=== PATIENT | female | born 1955 | race Caucasian/White ===

== ENCOUNTER 2016-11-11 10:18 | Inpatient (IN) | payer OTHER, MEDICAID ==
[2016-11-11] VITALS (9 sets, daily range): BP systolic 144–211; BP diastolic 60–100; Ht 157.5 cm; Wt 81.6 kg
[~2016-11-11] VITALS: Ht 157.5 cm; Wt 81.6 kg
[~2016-11-11 10:18] MED LIST: AMBIEN10 MG PO; ATENOLOL50 MG PO; CLONIDINE HCL0.1 MG PO; COLACE100 MG PO; LAC PO; LEVAQUIN750 MG PO; LORAZEPAM1 MG PO; MEDDP PO; NICOTINE T14 MG/24 H TOP; NOR10T PO; PRILOSEC20 MG PO
--- NOTE | 2016-11-11 10:47 | NUR ---
PT IS A 61 YEAR OLD FEMALE, PRESENTS TO ED VIA [facility] FROM HOME, PTS DAUGHTER CALLED 911 DUE TO ALOC, PT WAS X/[address]. PT WAS HOT TO TOUCH AT HOME. PT HAS HAVE N/V/D X3 DAYS. UPON ASSESSMENT IN ROOM, PT A/O X4. PT REPORTS FEELING EXTREMTLY THIRTSY. PT IS HOT TO TOUCH. PT DENIES ANY PAIN AT THIS TIME. PT BREAHTING IS EVEN AND UNLABOERED, NO S/S OF RESPRAITORY DISTRSES. SPEECH IS CLEAR AND APPROPRIATE. PT A/O X4. 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 MSE PERFORMED BY DR. ADAMS.
--- NOTE | 2016-11-11 11:02 | NUR ---
PT MEDICATED WITH TYLENOL 1GM PO FOR FEVER OF 104.
--- NOTE | 2016-11-11 11:05 | NUR ---
PT TAKEN TO CT VIA [facility].
--- NOTE | 2016-11-11 11:16 | NUR ---
BACK FROM CT VIA [facility].
[2016-11-11 11:44] LABS: BASOPHIL % 0.1 % (0-2); PLATELET COUNT 173 x10^3mcL (130-400); RED CELL DISTRIBUTION WIDTH 14.3 % (11.5-14.5)
[2016-11-11 11:55] LABS: CALCIUM 8.2 mg/dL (8.5-10.1); CARBON DIOXIDE 30.8 mmol/L (21-32); CHLORIDE SERUM 96 mmol/L (98-107); CREATININE SERUM 0.8 mg/dL (0.6-1.0); GFR1 > 60 mL/min; GLUCOSE SERUM 175 mg/dL (74-106); POTASSIUM SERUM 3.2 mmol/L (3.5-5.1); SODIUM SERUM 132 mmol/L (136-145)
[2016-11-11 11:59] LABS: UA SPECIFIC GRAVITY 1.025 (1.005-1.035); microscopic required? YES; urine erythrocyte 1+ (NEGATIVE)
[2016-11-11 12:07] LABS: ALKALINE PHOSPHATASE 129 U/L (46-116); ALT/SGPT 55 U/L (14-59); AST/SGOT 45 U/L (15-37); BILIRUBIN TOTAL 0.83 mg/dL (0.20-1.00); LIPASE 47 IU/L (73-393); MAGNESIUM 1.6 mg/dL (1.8-2.4); T4(THYROXINE) 6.8 ug/dL (4.7-13.3); TOTAL PROTEIN, SERUM 6.5 g/dL (6.4-8.2)
[2016-11-11 12:08] LABS: ALBUMIN 2.7 g/dL (3.4-5.0); AMYLASE 12 U/L (25-115); CHOLESTEROL 223 mg/dL (<200); HDL CHOLESTEROL 32 mg/dL (40-60)
--- NOTE | 2016-11-11 12:10 | NUR ---
2ND LITER NS BOLUS STARTED.
[2016-11-11 12:14] LABS: AMPHETAMINE QUAL UR NONE DETECTED (NEG <=1000)
--- NOTE | 2016-11-11 13:35 | NUR ---
PT GIVEN SANWHCIH AND APPLE JUICE.
--- NOTE | 2016-11-11 14:37 | NUR ---
REPORT CALLED TO CHRISTINE BETH, SHE WILL ASSUME CARE PRIMARY RN.
[2016-11-11 15:21] LABS: T3 TOTAL 0.71 ng/mL
[2016-11-11 15:26] LABS: CHOLESTEROL/HDL RATIO 6.8
[2016-11-11 15:41] LABS: FREE T4 1.12 ng/dL (0.76-1.46); FREE THYROXINE INDEX 2.6 ug/dL (1.4-4.5); T4(THYROXINE) 7.4 ug/dL (4.7-13.3)
--- NOTE | 2016-11-11 15:46 | NUR ---
RECEIVED PT FROM ED VIA [facility], CAME IN DUE TO FEVER X4 DAYS. AAOX4, W/ MILD CONFUSION AT TIMES. SOB NOTED, PLACED ON 2LPM/NC, O2 SAT=94%. W/ PRODUCTIVE COUGH, ABLE TO EXPECTORATE WHITE PHLEGM, SCANT IN AMOUNT. DENIES CHEST PAIN/PRESSURE, HR AT 134 ON THE MONITOR. DENIES ABDOMINAL DISCOMFORT. BOWEL SOUNDS ACTIVE. IV SITE PATENT AND INTACT. SIDE RAILS UPX2. CALL LIGHT ON REACH.
--- NOTE | 2016-11-11 15:55 | NUR ---
DR. ESPINOSA MADE AWARE THAT DTBJ=060.9, VU=207 AND XJ=635/89. DR. ESPINOSA AT BEDSIDE ASSESSING THE PATIENT AND TALKING TO PT'S DAUGHTER
--- NOTE | 2016-11-11 16:10 | NUR ---
PT AWAKE, ALERT TO PERSON AND . PT ANXIOUS AND RESTLESS. DTR AT BEDSIDE TO KEEP PT ORIENTED AND IN BED. PT TRIES TO GET OOB. REPOSITIONED FOR COMFORT. SIDE RAILS UP X3. CALL LIGHT IN REACH. BED ALARM ON. PT TEMP 101.9. UW=271. VH=108/89. DR ESPINOSA REVIEWING MEDS WITH DTR. TO ORDER LOPRESSOR IVP. TELE #8 PLACED SINUS TACH. DENIES CHEST DISCOMFORT. RESP 20 SHALLOW WITH MILD SOB. PRODUCTIVE COUGH WITH WHITE SECRETIONS. OXYGEN 2L NC IN USE. HOB ELEVATED. ABD ROUNDED BUT SOFT, BOWEL TONES PRESENT. DTR STATES "UNSURE IF PT TOOK MEDS THIS AM OR ATE. SHE WAS CONFUSED WHEN I GOT TO HER HOUSE SO I CALLED 911." NO PITTING EDEMA. PULSES PRESENT. SCD APPLIED. IV PATENT WITH GOOD BLOOD RETURN TO LAC. NORMAL SALINE BOLUS COMPLETED. STARTED NORMAL SALINE 120CC/HR. PT START ON CCHO DIET PER PT REQUEST "HUNGRY." SIDE RAILS UP X3. CALL LIGHT IN REACH. BED ALARM ON.
--- NOTE | 2016-11-11 16:10 | NUR ---
ENDORSED TO PRIMARY NURSE LIN FOR CONTINUITY OF CARE
--- NOTE | 2016-11-11 16:38 | NUR ---
IZ=797, RESP 20, SG=378/90. XEG=291. PULSE OX 96% ON OXYGEN 2L NC. MED WITH LOPRESSOR 2.5MG IVP PER ORDER. IV PATENT.
--- NOTE | 2016-11-11 16:45 | NUR ---
MED WITH TORADOL 15MG IVP ORDERED.
--- NOTE | 2016-11-11 17:00 | NUR ---
KJ=465. NO=841/82. MED WITH CATAPRESS 0.1MG PO AND ATIVAN 1MG IVP ORDERED DUE TO PT ANXIETY AND RESTLESSNESS.
--- NOTE | 2016-11-11 17:05 | NUR ---
PT C/O ABD PAIN WITH SOME NAUSEA AFTER EATING HALF SANDWICH. DR ESPINOSA MADE AWARE, WITH NEW ORDER FOR NPO AND POSSIBLE ABD IMAGING. PRIMARY NURSE LIN MADE AWARE.
--- NOTE | 2016-11-11 17:15 | NUR ---
JM=472, ZN=757/77. PULSE OX 94%. WDN=770. PT RESTING, LESS ANIXOUS. DTR LEAVING FOR THE NIGHT. WILL CONTINUE TO MONITOR. BED ALARM ON. CALL LIGHT IN REACH. FOR CT ABD/PELVIS. NOW NPO.
--- NOTE | 2016-11-11 17:22 | NUR ---
TEMP RECHECK 103.9, COOLING MEASURES IN PLACE. INTIAL TEMP 104.1. PRIMARY NURSE LIN ARORA, GIVEN TORADOL IVP ORDERED PRN. SEE EMAR. WILL CONTINUE TO MONITOR.
--- NOTE | 2016-11-11 17:30 | NUR ---
TEMP 100.5 TEMPORAL. GS=676/71. RD=018. PULSE OX 95%. RAL=996. DR ESPINOSA HERE AND MADE AWARE.
--- NOTE | 2016-11-11 17:38 | NUR ---
PT AWAKE, LESS ANXIOUS. MED WITH ATIVAN 1MG PO ORDERED.
--- NOTE | 2016-11-11 18:15 | NUR ---
ASSIST PT TO BSC, VOIDED 300C CARLOS URINE. PERICARE PROVIDED. ASSIST BACK TO BED. IV CONVERTED TO SALINE LOCK. TO BE TAKEN TO CT SCAN VIA BED. PT MADE AWARE. BED ALARM ON AT THIS TIME. CALL LIGHT IN REACH.
--- NOTE | 2016-11-11 18:47 | NUR ---
TO CT DEPT VIA BED. OXYGEN 2L NC IN USE. REPORT GIVEN TO JOB SITE SUPERINTENDENT. WILL GO FROM CT TO ULTRASOUND DEPT FOLLOWING CT SCAN.
--- NOTE | 2016-11-11 19:30 | NUR ---
PATIENT RECEIVED AWAKE, ALERT, AND ORIENTED X 3. ULTRASOUND AT BEDSIDE. NO DISTRESS NOTED. PATIENT C/O BACK PAIN 04/08 WILL MEDICATE PER DOCTOR'S PRN ORDER. IV SITE TO LEFT AC, PATENT AND INTACT. IV FLUID INFUSING PER DOCTOR'S ORDER. BED IN LOWEST POSITION. CALL LIGHT WITHIN REACH. WILL CONTINUE TO MONITOR.
[2016-11-12] VITALS (7 sets, daily range): BP systolic 104–164; BP diastolic 54–83
--- NOTE | 2016-11-12 04:40 | NUR ---
WAS NOTIFIED PATIENT WAS FOUND LYING ON THE FLOOR LEANING AGAINST A CHAIR. PATIENT STATES SHE GOT UP TO USE THE BATHROOM BUT SLIPPED AND FELL. ASSISTED PATIENT BACK INTO BED. DR AMAYA NOTIFIED. PATIENT IS AWAKE, ALERT, AND ORIENTED TO PERSON,BIRTHDAY, AND PLACE. PATIENT STATES SHE SLIGHTLY HIT HER HEAD. CT HEAD ORDERED BY DR AMAYA. WILL CONTINUE TO MONITOR.
--- NOTE | 2016-11-12 06:04 | NUR ---
PATIENT GOING DOWN FOR CT AT THIS TIME ASSISTED BY ALANNA (TECH) AND CHARGE NURSE YUE.
--- NOTE | 2016-11-12 06:35 | NUR ---
PATIENT IS BACK FROM CT. NO DISTRESS NOTED. NO C/O PAIN. BED IN LOWEST POSITION. CALL LIGHT WITHIN REACH. WILL CONTINUE TO MONITOR.
--- NOTE | 2016-11-12 07:15 | NUR ---
PT SEEN SLEEPING BUT AROUSABLE WITH VERBAL RESPONSE. PT NO COMPLAIN OF PAIN AND SOB AT THIS TIME. PT BREATHING ON O2 2L VIA NC. EVEN, MILD LABORED, SHALLOW BREATHING NOTED. IV SITE PATENT, INTACT. IVF INFUSING WELL.
[2016-11-12 08:39] LABS: BASOPHIL % 0.2 % (0-2); PLATELET COUNT 173 x10^3mcL (130-400); RED CELL DISTRIBUTION WIDTH 14.1 % (11.5-14.5)
[2016-11-12 09:02] LABS: CARBON DIOXIDE 27.7 mmol/L (21-32); CHLORIDE SERUM 100 mmol/L (98-107); CREATININE SERUM 0.7 mg/dL (0.6-1.0); GFR1 > 60 mL/min; GLUCOSE SERUM 158 mg/dL (74-106); MAGNESIUM 1.6 mg/dL (1.8-2.4); PHOSPHOROUS 2.4 mg/dL (2.5-4.9); SODIUM SERUM 136 mmol/L (136-145)
[2016-11-12 09:21] LABS: POTASSIUM SERUM 2.9 mmol/L (3.5-5.1)
--- NOTE | 2016-11-12 10:47 | NUR ---
PT'S TEMP ELEVATED 103.1, TYLENOL GIVEN, COOLING MEASURE PROVIDE. WILL KEEP MONITORING.
--- NOTE | 2016-11-12 11:00 | NUR ---
CALLED AND MADE DR. ESPINOSA AWARE PT'S K+2.9 LOW.
--- NOTE | 2016-11-12 18:56 | NUR ---
PT'S DAUGHTER AT BED SIDE. PT REPORTED BACK PAIN. NORCO GIVEN PER PRN ORDER. PT BREATHING ON O2 3L VIA NC, EVEN, UNLABORED. IV SITE PATENT, INTACT. POTASSIUM CHLORIDE IS INFUSING.
--- NOTE | 2016-11-12 19:40 | NUR ---
RECEIVED Pt A/O X3 CALM AND COOPERATIVE WITH CARE. DENIES ANY CHEST PAIN. LUNG SOUNDS ARE CTA BILATERALLY. ACTIVE BOWEL SOUNDS X4 QUADS. IV SITE TO LH HAND PATENT. SKIN IS INTACT. DENIES ANY PAIN AT THIS TIME. RADIAL AND PEDAL PULSES ARE PRESENT. MOVES ALL EXTREMITIES. NO EDEMA NOTED. RE-ORIENTED TO ROOM AND CALL LIGHT SYSTEM WITHIN EASY REACH. WILL CONTINUE TO MONITOR.
[2016-11-12 20:29] LABS: CALCIUM 7.9 mg/dL (8.5-10.1); CARBON DIOXIDE 27.2 mmol/L (21-32); CHLORIDE SERUM 97 mmol/L (98-107); CREATININE SERUM 0.9 mg/dL (0.6-1.0); GFR1 > 60 mL/min; GLUCOSE SERUM 194 mg/dL (74-106); POTASSIUM SERUM 3.5 mmol/L (3.5-5.1); SODIUM SERUM 132 mmol/L (136-145)
--- NOTE | 2016-11-12 21:26 | NUR ---
I HAVE REVIEWED THE DATA COLLECTION BY SENIOR CONTROLLER (NAME): ENTERED ON (DATE/TIME): I CONCUR WITH THE DATA AND ANY EXCEPTIONS OR COMMENTS ARE LISTED BELOW:NNEKA BAIN
--- NOTE | 2016-11-12 23:40 | NUR ---
NEW IV SITE STARTED TO RFA/20G. TOLERATED WELL. WILL CONTINUE TO MONITOR.
--- NOTE | 2016-11-13 02:53 | NUR ---
Pt MEDICATED WITH TYLENOL 650MG PO FOR TEMP OF 100.7, COOLING MEASURES IN PLACE. WILL CONTINUE TO MONITOR.
--- NOTE | 2016-11-13 03:57 | NUR ---
Pt AWAKE, ASSISTED HER TO USE THE BEDSIDE COMMODE, Pt IS VERY UNSTEADY AND DROWSY. CALL LIGHT WITHIN REACH. WILL CONTINUE TO MONITOR.
--- NOTE | 2016-11-13 05:10 | NUR ---
NO SIGNIFICANT CHANGES NOTED OVER NIGHT. Pt REMAINED CALM AND COOPERATIVE. TEMPERATURE ON AND OFF. REMAINS WITH COOLING MEASURES AND MEDICATED NEEDED FOR TEMP. VERY UNSTEADY GAIT. ASSISTING WITH RESTROOM NEEDS. BED ALARM IN PLACE. REMAINS DROWSY BUT AWAKE. SAFETY AND COMFORT MEASURES REMAIN IN PLACE. WILL CONTINUE TO MONITOR.
[2016-11-13 05:22] VITALS: BP 139/70
[2016-11-13 06:30] LABS: CALCIUM 8.1 mg/dL (8.5-10.1); CARBON DIOXIDE 26.2 mmol/L (21-32); CHLORIDE SERUM 98 mmol/L (98-107); CREATININE SERUM 0.8 mg/dL (0.6-1.0); GFR1 > 60 mL/min; GLUCOSE SERUM 139 mg/dL (74-106); MAGNESIUM 2.2 mg/dL (1.8-2.4); PHOSPHOROUS 2.6 mg/dL (2.5-4.9); POTASSIUM SERUM 3.4 mmol/L (3.5-5.1); SODIUM SERUM 132 mmol/L (136-145)
--- NOTE | 2016-11-13 08:00 | NUR ---
RECEIVED PATIENT AAOX4 BUT FORGETFUL AT TIMES, ABLE TO COMMUNICATE WITH CLEAR SPEEACH, ABLE TO FOLLOW COMMANDS, TELE# 8 AND DENIES CHEST PAIN. RESPIRATIONS EVEN AND SHLLOW BUT NO RESPIRATORY DISTRESS NOTED, ON 3L O2 NC, O2 SAT 94% DENIES SOB, AND ON RESPIRTORY THERAPY PROTOCOL. DENIES N/V/D. VOIDS FREELY USING BSC WITH ASSIST AND WILL ASSIST NEEDED, PATIENT MADE AWARE URINE WILL BE STRAINED. DENIES PAIN. IV TO [facility] CDI AND IV TO CDI. BED TO LOWEST POSITION, SIDE RAILS UP X2, FALL PRECAUTIONS IN PLACE, AND INSTRUCTED TO USE CALL LIGHT FOR ASSITANCE AND PATIENT VERBALIZED UNDERSTANDING, WILL CONTINUE TO MONITOR.
[2016-11-13 08:03] LABS: BASOPHIL % 0.3 % (0-2); PLATELET COUNT 180 x10^3mcL (130-400)
[2016-11-13 08:04] LABS: RED CELL DISTRIBUTION WIDTH 14.8 % (11.5-14.5)
[2016-11-13 09:35] VITALS: BP 154/68
--- NOTE | 2016-11-13 11:01 | NUR ---
PATIENT C/O GENERALIZED ACHING PAIN 02/05, NORCO 7.5/325 TAB PO Q4H PRN GIVEN FOR PAIN, FALL PRECATUTIONS IN PLACE, BED TO LOWEST POSITION, SIDE RAILS UPX2, INSTRUCTED TO USE CALL LIGHT FOR ASSITANCE AND VERBALIZED UNDERSTANDING, CALL LIGHT AND BELONGINGS WITHIN REACH, AND WILL CONTINUE TO MONITOR.
--- NOTE | 2016-11-13 11:25 | NUR ---
DIABETIC TEACHING DONE, ALL QUESTIONS AND CONCERNS ADDRESSED, CALL LIGHT AND BELONGINGS WITHIN REACH, FALL PRECAUTIONS IN PLACE, INSTRUCTED TO USE CALL LIGHT FOR ASSITANCE, VERBALIZED UNDERSTANDING, WILL CONTINUE TO MONITOR.
--- NOTE | 2016-11-13 11:40 | NUR ---
MADE AWARE PATIENT IS HAVING A SORE THROAT, AWAITING ORDERS AND WILL CONTINUE TO MONITOR.
[2016-11-13 12:57] VITALS: BP 125/59
--- NOTE | 2016-11-13 13:24 | NUR ---
P.T. 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 S: Pt WAS SEEN AWAKE & ALERT IN BED, SPEAKS BRUNEIAN, ORIENTED x3, ABLE TO FOLLOW SIMPLE COMMANDS, SLOW TO RESPOND, FORGETFUL AT TIMES, OCCASIONALLY DEMO BLANK STARES; AGREEABLE & COOPERATIVE W/ P.T.; NO C/O PAIN OR DIZZINESS AT THIS TIME; O2 N/C @3LPM IN PLACE; STATES SHE PLANS TO MOVE CLOSER TO HER DAUGHTER's HOUSE IN ~2 MONTHS, WILL MOVE OUT FROM HER SON's APARTMENT. O:BED MOBILITY: CG ASSIST IN SUPINE TO SIT TRANSFERS: MIN ASSIST IN SIT TO STAND W/ FWW GAIT: MOD/MIN ASSIST W/ FWW X 8 FT, SIDESTEPS TOWARDS HOB, FORWARD & BACKWARD STEPS AT BEDSIDE, UNABLE TO AMBU FARTHER DUE TO WEAKNESS & FATIGUE; ASSISTED TO BED SAFELY; HOB ELEVATED, CALL ARMANDO, PHONE, TABLE IN REACH; APPRECIATIVE; O2 RE APPLIED; BED ALARM ON; SON IN ROOM & SUPPORTIVE. A:Pt DEMO GOOD RESPONSE TO P.T. SESSION; FALL RISK; Pt EDUC ON SAFE GAIT, BREATHING TECH, HEP, USE OF CALL LIGHT FOR NURSE ASSIST, VERBALIZED UNDERSTANDING; TY=780/65, 114/60; HR=80, 90; O2 SAT 3LPM=93% IN SUPINE; 2LPM POST ACTIVITY=97%; SLOW IN TASK FACILITATION. P:CONT PT ONCE DAILY 6X/WK X 1 WK; POC & DX DISCUSSED W/ MENDER HAND; WILL BENEFIT W/ P.T. AFTER ACUTE STAY PRIOR TO RETURNING HOME. EVAL30 GCODES:[id number] [facility] REACH SCORE:20 inches [id number] Pt WAS GIVEN THERA EXER UE/LE ECHO; CONT PT EX8
[2016-11-13 16:38] VITALS: BP 127/58
--- NOTE | 2016-11-13 17:02 | NUR ---
PATIENT SITTING UP IN BED AAOX4, C/O GENERALIZED ACHING PAIN 01/06, NORCO 7.5/325 TAB PO Q4H PRN GIVEN FOR PAIN, FALL PRECATUTIONS IN PLACE, BED TO LOWEST POSITION, SIDE RAILS UPX2, INSTRUCTED TO USE CALL LIGHT FOR ASSITANCE AND VERBALIZED UNDERSTANDING, CALL LIGHT AND BELONGINGS WITHIN REACH, AND WILL CONTINUE TO MONITOR.
--- NOTE | 2016-11-13 18:25 | NUR ---
PATIENT SITTING UP IN BED AAOX4, NO DISTRESS NOTED, PATIENT EATING DINNER, DENIES PAIN, ON 2L O2 NC AND O2 SAT 98%, DENIES SOB, RESPIRATIONS EVEN AND UNLABORED, CALL LIGHT AND BELONGINGS WITHIN REACH, FALL PRECAUTIONS IN PLACE AND WILL ENDORSE TO NIGHT NURSE.
--- NOTE | 2016-11-13 19:10 | NUR ---
PATIENT RECEIVED AWAKE, ALERT, AND ORIENTED X 4. NO DISTRESS NOTED. PATIENT C/O 8/10 GENERALIZED PAIN BUT TOLERABLE AT THIS TIME. IV SITE TO RIGHT FOREARM, PATENT AND INTACT. IV FLUID INFUSING PER DOCTOR'S ORDER. IV SITE TO LH, HEPLOCKED. BED IN LOWEST POSITION. CALL LIGHT WITHIN REACH. BED ALARM ON. WILL CONTINUE TO MONITOR.
[2016-11-13 22:39] VITALS: BP 144/54
--- NOTE | 2016-11-13 23:17 | NUR ---
PATIENT ACCIDENTALLY PULLED OUT IV TO RIGHT FOREARM. IV SITE TO LEFT HAND NOW BEING USED. PATENT AND INTACT. IV FLUID RESTARTED PER DOCTOR'S ORDER.
--- NOTE | 2016-11-14 01:05 | NUR ---
PER PATIENT'S REQUEST REMOVED NICOTINE PATCH.
--- NOTE | 2016-11-14 05:24 | NUR ---
PATIENT RESTED IN INTERVALS THROUGHOUT THE NIGHT. NO DISTRESS NOTED. SAFETY AND COMFORT MEASURES MAINTAINED. BED IN LOWEST POSITION. CALL LIGHT WITHIN REACH. BED ALARM ON. WILL CONTINUE TO MONITOR AND ENDORSE TO NEXT SHIFT NURSE.
[2016-11-14 06:22] VITALS: BP 167/72
[2016-11-14 06:39] LABS: BASOPHIL % 0.2 % (0-2); PLATELET COUNT 233 x10^3mcL (130-400); RED CELL DISTRIBUTION WIDTH 14.1 % (11.5-14.5)
[2016-11-14 07:00] LABS: CALCIUM 8.9 mg/dL (8.5-10.1); CARBON DIOXIDE 23.6 mmol/L (21-32); CHLORIDE SERUM 100 mmol/L (98-107); CREATININE SERUM 0.8 mg/dL (0.6-1.0); GFR1 > 60 mL/min; GLUCOSE SERUM 136 mg/dL (74-106); MAGNESIUM 1.8 mg/dL (1.8-2.4); PHOSPHOROUS 3.3 mg/dL (2.5-4.9); POTASSIUM SERUM 3.8 mmol/L (3.5-5.1); SODIUM SERUM 136 mmol/L (136-145)
--- NOTE | 2016-11-14 07:15 | NUR ---
PT SEEN AWAKE, ALERT, ORIENTED X 3 AT THIS TIME, BUT FORGETFUL DURING NIGHT PER REPORT. PT BREATHING RA, SHALLOW FAST ADN MILD LABORED. PUT PT BACK ON O2 2L VIA NC. IV SITE PATENT, INTACT. IVF INFUSING WELL.
[2016-11-14 08:00] VITALS: BP 169/79
--- NOTE | 2016-11-14 09:00 | NUR ---
PT COMPLAIN OF BACK PAIN, NORCO GIVEN TO MANAGE PAIN PER PRN ORDER.
--- NOTE | 2016-11-14 09:50 | NUR ---
PT'S DAUGHTER AT BED SIDE. MADE PT'S DAUGHTER AWARE PT'S O2 DESATING WHEN SHE OFF O2.
[2016-11-14 10:13] VITALS: BP 132/54
--- NOTE | 2016-11-14 10:48 | NUR ---
PHYSICAL THEARPIST GOT PT OUT OF BED TO AMBULATE AND EVALUATE PT'S O2 SAT BEFORE, DURING AND AFTER.
[2016-11-14 13:18] VITALS: BP 114/61
--- NOTE | 2016-11-14 14:24 | NUR ---
PT NOTES TIME: [id number] TE8',TA10',GT20',PVE((2)SAFETY STANDBY) S:CHART REVIEWED AND CLEARED FOR PT BY RN. PATIENT IN SEMIFOWLER POSITION SLEEPING AND SOMEWHAT EASY TO AROUSE. PATIENT DENIES PAIN OR SOB AT THIS TIME AND IS AGREEABLE TO PARTICIPATE IN THERAPY. N/C@2LPM. BED ALARM ON. 0:BED: CGA/SBA SUPINE<->SIT VIA LOG ROLL WITH VC'S FOR PROPER HAND PLACEMENT/SEQUENCING TO SAFELY MAINTAIN PROPER BODY MECHANICS AND PACING. NO DIZZINESS EXPRESSED. BP 131/64, WITH N/C @2LPM 95%, HR 85. TRANSFER: CGA SIT<->STAND WITH VC'S AND TC'S FOR PROPER PUSH OFF FROM EOB AND PACING TO ADHERE TO PROPER BODY MECHANICS AND IMPROVE STANDING POSTURE TO SUSTAIN CENTER OF MASS. GAIT: CGA 90'x2 WITH FWW (IV POLE AND PORT O2 TANK @2LPM IN TOW). 3 SHORT STANDING REST BREAKS TAKEN FOR ENERGY CONSERVATION. NO LOB PRESENTED OR SOB EXPRESSED. PATIENT IS OVERALL STEADY WITH FWW WITH FEW REMINDERS ON CLOSE PROXIMITY TO FWW. SPO2 RANGED 90-93% ON N/C @2LPM WITH REMINDERS ON PROPER PLB TECH. TE: SHOULDER SHRUGS/CIRCLES, SCAPULAR RETRACTION/PROTRACTION WITH EMPHASIS ON POSTURAL AWARENESS TO IMPROVE LUNG CAPACITY, SEATED KNEE EXT/FLEX WITH ANKLE ROM IN ALL PLANES. (ALL TOLERATED). PATIENT EDUCATED WITH HEP, ENERGY CONSERVATION, PACING, POSTURAL AWARENESS, AND PACING WITH GOOD FOLLOW THRU. PATIENT COOPERATIVE AND APPRECIATIVE OF PT CARE, RN MADE AWARE. P:CONT WITH POC, PROGRESS DISCUSSED WITH PRIMARY PT. STAIRS TIME: [id number] TA6',GT9',PVE((1)SAFETY) RETURNED TO PATIENTS ROOM TO ATTEMPT STAIR TRAININIG AND IS AGREEABLE AFTER EDUCATION AND MOTIVATION. INSTRUCTED ON PROPER SEQUENCING AND PACING DURING STAIR TRAINING WITH SPC. PATIENT DEMONSTRATED 6 STEPS WITH PORTABLE STEP WITH NO ISSUES PRESENTED OR LOB PRESENTED. PATIENT RETURNED SAFELY AND MADE COMFORTABLE IN BED WITH TRAY AND CALL LIGHT IN REACH. BED ALARM ON. RN MADE AWARE.
[2016-11-14 15:25] VITALS: BP 130/57
[2016-11-14] MEDS ORDERED: LIPI20 PO (15:30)
[2016-11-14] MEDS ORDERED: CAT0.1 PO (15:32)
[2016-11-14] MEDS ORDERED: CYMBALTA30 M1 PO (15:33)
[2016-11-14] MEDS ORDERED: GLU500 PO (15:34)
[2016-11-14] MEDS ORDERED: NOR5 PO (15:37)
[2016-11-14] MEDS ORDERED: ECO81 PO (15:39)
[2016-11-14] MEDS ORDERED: LEVAQUIN500 M1 PO (15:40)
[2016-11-14] MEDS ORDERED: LAC PO (15:41)
[2016-11-14 15:46] VITALS: BP 114/61
[2016-11-14] MEDS ORDERED: MEDDP PO (16:11)
--- NOTE | 2016-11-14 16:15 | NUR ---
PT REMEMBERED TO CALL FOR ASSIST TO USE BSC. CHECK PT'S O2 SAT ON RA 96% AT THIS TIME, BREATHING EVEN, UNLABORED. PT IS ALERT, ORIENTED X 4 AT THIS TIME.
--- NOTE | 2016-11-14 17:38 | NUR ---
PT IS READY TO DISCHARGE. PT'S DAUGHTER CAME TO HIDE BUFFER PT. PT BREATHING ON RA, EVEN, MILD LABORED NOTED. NO DISTRESSED. DISCHARGE INSTRUCTION GIVEN TO PT AND HER DAUGHTER. PT IS SENT DOWN WITH WHEEL CHAIR BY BK.
[2016-11-21] MEDS ORDERED: FLUCONAZOLE100 MG PO (16:44)
== END 2016-11-14 17:42 | disposition home health service (06) | DRG 871 ==
LOC: ED 10:18 → DU 13:29 → MU 11-14 10:21
PROVIDERS: Emergency Medicine; Family Medicine; ADMIT Family Medicine
DX: A41.9 Sepsis, unspecified organism (principal); J69.0 Pneumonitis due to inhalation of food and vomit; J96.21 Acute and chronic respiratory failure with hypoxia; N17.0 Acute kidney failure with tubular necrosis; E43 Unspecified severe protein-calorie malnutrition; G93.41 Metabolic encephalopathy; J44.1 Chronic obstructive pulmonary disease with (acute) exacerbation; E87.1 Hypo-osmolality and hyponatremia; N13.2 Hydronephrosis with renal and ureteral calculous obstruction; E11.51 Type 2 diabetes mellitus with diabetic peripheral angiopathy without gangrene; E11.65 Type 2 diabetes mellitus with hyperglycemia; E87.6 Hypokalemia; E83.42 Hypomagnesemia; E86.0 Dehydration; R80.8 Other proteinuria; K56.41 Fecal impaction; F41.8 Other specified anxiety disorders; E78.5 Hyperlipidemia, unspecified; K21.9 Gastro-esophageal reflux disease without esophagitis; G47.00 Insomnia, unspecified; E66.9 Obesity, unspecified; Z99.81 Dependence on supplemental oxygen; Z68.32 Body mass index [BMI] 32.0-32.9, adult; F17.210 Nicotine dependence, cigarettes, uncomplicated; Z79.84 Long term (current) use of oral hypoglycemic drugs
CPT/HCPCS: 36600; 80307; 82962; 83880; 84439; 87106; 97110-GP; 97116-GP; 97530-GP; C9113; G0480; J1644; J1815; J1885; J1956; J2060; J3475; J3480; J3490; J7030; J7040; J7626; Q0092

== ENCOUNTER 2017-09-08 15:09 | Inpatient (IN) | payer OTHER, MEDICAID ==
[~2017-09-08] VITALS: Ht 157.5 cm; Wt 100.7 kg
[~2017-09-08 15:09] MED LIST changes: +CAT0.1 PO; +CYMBALTA30 M1 PO; +ECO81 PO; +FLUCONAZOLE100 MG PO; +GLU500 PO; +LEVAQUIN500 M1 PO; +LIPI20 PO; +NOR5 PO
[2017-09-08 15:22] VITALS: Ht 157.5 cm; Wt 100.7 kg
[2017-09-08 18:19] LABS: BASOPHIL % 0.3 % (0-2); PLATELET COUNT 280 x10^3mcL (130-400); RED CELL DISTRIBUTION WIDTH 12.7 % (11.5-14.5)
[2017-09-08 18:33] LABS: CALCIUM 9.4 mg/dL (8.5-10.1); CARBON DIOXIDE 28.5 mmol/L (21-32); CHLORIDE SERUM 105 mmol/L (98-107); CREATININE SERUM 0.7 mg/dL (0.6-1.0); GFR1 > 60 mL/min; GLUCOSE SERUM 116 mg/dL (74-106); POTASSIUM SERUM 3.9 mmol/L (3.5-5.1); SODIUM SERUM 144 mmol/L (136-145)
[2017-09-08 18:34] LABS: microscopic required? NO
[2017-09-08 18:38] LABS: ALBUMIN 3.9 g/dL (3.4-5.0); ALKALINE PHOSPHATASE 87 U/L (46-116); ALT/SGPT 19 U/L (14-59); AST/SGOT 18 U/L (15-37); BILIRUBIN TOTAL 0.36 mg/dL (0.20-1.00); TOTAL PROTEIN, SERUM 7.4 g/dL (6.4-8.2)
[2017-09-08 18:51] LABS: UA SPECIFIC GRAVITY <=1.005 (1.005-1.035); urine erythrocyte NEGATIVE (NEGATIVE)
[2017-09-08] MEDS ORDERED: METFORMIN HYDR500 M1 PO (19:03)
[2017-09-08] MEDS ORDERED: SINGULAIR10 MG PO (19:03)
[2017-09-08] MEDS ORDERED: TRILIPIX135 M1 PO (19:05)
[2017-09-08] MEDS ORDERED: AMLODIPINE BESYL5 M2 PO (19:06)
[2017-09-08 20:51] VITALS: BP 139/79
[2017-09-08 21:40] LABS: T3 TOTAL 0.96 ng/mL
[2017-09-08] MEDS ORDERED: LIPITOR80 MG PO (21:44)
[2017-09-08] MEDS ORDERED: ATIVAN1 MG PO (21:50)
[2017-09-08] MEDS ORDERED: CLONIDINE HCL0.1 MG PO (21:53)
[2017-09-08 21:55] LABS: CHOLESTEROL/HDL RATIO 3.5; MAGNESIUM 1.6 mg/dL (1.8-2.4); PHOSPHOROUS 3.4 mg/dL (2.5-4.9)
[2017-09-08 22:02] LABS: FREE T4 0.98 ng/dL (0.76-1.46); T4(THYROXINE) 9.3 ug/dL (4.7-13.3)
[2017-09-08 23:16] VITALS: BP 139/79
[2017-09-09 01:15] LABS: AMPHETAMINE QUAL UR NONE DETECTED (NEG <=1000)
[2017-09-09 04:45] VITALS: BP 138/57
[2017-09-09 06:25] LABS: BASOPHIL % 0.3 % (0-2); PLATELET COUNT 237 x10^3mcL (130-400); RED CELL DISTRIBUTION WIDTH 12.8 % (11.5-14.5)
[2017-09-09 06:53] LABS: CARBON DIOXIDE 26.9 mmol/L (21-32); CHLORIDE SERUM 105 mmol/L (98-107); CREATININE SERUM 0.7 mg/dL (0.6-1.0); GFR1 > 60 mL/min; GLUCOSE SERUM 131 mg/dL (74-106); POTASSIUM SERUM 3.6 mmol/L (3.5-5.1); SODIUM SERUM 143 mmol/L (136-145)
[2017-09-09 09:46] VITALS: BP 128/49
[2017-09-09 14:12] VITALS: BP 121/55
[2017-09-09 17:51] VITALS: BP 129/61
[2017-09-09 20:52] VITALS: BP 151/64
[2017-09-10 04:50] VITALS: BP 157/68
[2017-09-10 06:06] LABS: PLATELET COUNT 288 x10^3mcL (130-400); RED CELL DISTRIBUTION WIDTH 12.9 % (11.5-14.5)
[2017-09-10 06:55] LABS: BASOPHIL % 0 % (0-2)
[2017-09-10 07:28] LABS: CALCIUM 10.5 mg/dL (8.5-10.1); CARBON DIOXIDE 25.8 mmol/L (21-32); CHLORIDE SERUM 104 mmol/L (98-107); GFR1 > 60 mL/min; GLUCOSE SERUM 288 mg/dL (74-106); PHOSPHOROUS 3.5 mg/dL (2.5-4.9); POTASSIUM SERUM 4.8 mmol/L (3.5-5.1); SODIUM SERUM 142 mmol/L (136-145)
[2017-09-10 09:35] VITALS: BP 131/61
[2017-09-10 13:17] VITALS: BP 144/63
[2017-09-10 16:57] VITALS: BP 123/60
[2017-09-10 20:40] VITALS: BP 153/69
[2017-09-11 05:17] VITALS: BP 131/71
[2017-09-11 06:49] LABS: BASOPHIL % 0.3 % (0-2); PLATELET COUNT 285 x10^3mcL (130-400); RED CELL DISTRIBUTION WIDTH 12.8 % (11.5-14.5)
[2017-09-11 06:58] LABS: CALCIUM 9.2 mg/dL (8.5-10.1); CHLORIDE SERUM 105 mmol/L (98-107); CREATININE SERUM 0.9 mg/dL (0.6-1.0); GFR1 > 60 mL/min; GLUCOSE SERUM 142 mg/dL (74-106); PHOSPHOROUS 3.6 mg/dL (2.5-4.9); POTASSIUM SERUM 4.6 mmol/L (3.5-5.1); SODIUM SERUM 144 mmol/L (136-145)
[2017-09-11 08:57] VITALS: BP 141/80
[2017-09-11] MEDS ORDERED: LEV500 PO ×2 (09:59→14:34)
[2017-09-11] MEDS ORDERED: CLE150 PO ×2 (10:00→14:34)
[2017-09-11] MEDS ORDERED: VENTOLIN H0.09 MG/A1 INH (10:01)
[2017-09-11] MEDS ORDERED: NEU300 PO ×2 (10:01→14:34)
[2017-09-11] MEDS ORDERED: PREDNISONE10 MG PO (10:02)
[2017-09-11] MEDS ORDERED: LAC PO ×2 (10:23→14:34)
[2017-09-11 12:09] VITALS: BP 141/80
[2017-09-11] MEDS ORDERED: TRILIPIX135 M1 PO (14:34)
[2017-09-11] MEDS ORDERED: CLONIDINE HCL0.1 MG PO (14:34)
[2017-09-11] MEDS ORDERED: METFORMIN HYDR500 M1 PO (14:34)
[2017-09-11] MEDS ORDERED: LIPITOR80 MG PO (14:34)
[2017-09-11] MEDS ORDERED: AMLODIPINE BESYL5 M2 PO (14:34)
== END 2017-09-11 14:32 | disposition home or self-care (01) | DRG 177 ==
LOC: ED 15:09 → DU 18:44 → MU 09-10 09:43
PROVIDERS: Emergency Medicine; Family Medicine; Student in an Organized Health Care Education/Training Program
DX: J69.0 Pneumonitis due to inhalation of food and vomit (principal); J96.01 Acute respiratory failure with hypoxia; N17.0 Acute kidney failure with tubular necrosis; J44.1 Chronic obstructive pulmonary disease with (acute) exacerbation; Z68.41 Body mass index [BMI] 40.0-44.9, adult; I16.0 Hypertensive urgency; E11.40 Type 2 diabetes mellitus with diabetic neuropathy, unspecified; E11.51 Type 2 diabetes mellitus with diabetic peripheral angiopathy without gangrene; E11.65 Type 2 diabetes mellitus with hyperglycemia; I10 Essential (primary) hypertension; M79.7 Fibromyalgia; E83.42 Hypomagnesemia; G47.00 Insomnia, unspecified; E78.5 Hyperlipidemia, unspecified; E66.01 Morbid (severe) obesity due to excess calories; Z53.29 Procedure and treatment not carried out because of patient's decision for other reasons; Z87.891 Personal history of nicotine dependence; Z79.84 Long term (current) use of oral hypoglycemic drugs; Z79.82 Long term (current) use of aspirin; Z90.710 Acquired absence of both cervix and uterus; Z90.89 Acquired absence of other organs
CPT/HCPCS: 36600; 82962; 83880; 84439; 87804; J1815; J1956; J2920; J2930; J3475; J3490; J7030; J7613; J7620; J7626; Q0092

== ENCOUNTER 2017-10-31 14:14 | Emergency (ER) | payer OTHER, MEDICAID ==
[~2017-10-31] VITALS: Ht 157.5 cm; Wt 93.0 kg
[~2017-10-31 14:14] MED LIST changes: +AMLODIPINE BESYL5 M2 PO; +ATIVAN1 MG PO; +CLE150 PO; +LEV500 PO; +LIPITOR80 MG PO; +METFORMIN HYDR500 M1 PO; +NEU300 PO; +PREDNISONE10 MG PO; +SINGULAIR10 MG PO; +TRILIPIX135 M1 PO; +VENTOLIN H0.09 MG/A1 INH
[2017-10-31 14:17] VITALS: Ht 157.5 cm; Wt 93.0 kg
[2017-10-31 15:46] LABS: BASOPHIL % 0.2 % (0-2); PLATELET COUNT 278 x10^3mcL (130-400); RED CELL DISTRIBUTION WIDTH 13.4 % (11.5-14.5)
[2017-10-31 16:00] LABS: CALCIUM 9.6 mg/dL (8.5-10.1); CARBON DIOXIDE 25.2 mmol/L (21-32); CHLORIDE SERUM 103 mmol/L (98-107); CREATININE SERUM 0.7 mg/dL (0.6-1.0); GFR1 > 60 mL/min; GLUCOSE SERUM 126 mg/dL (74-106); POTASSIUM SERUM 3.2 mmol/L (3.5-5.1); SODIUM SERUM 137 mmol/L (136-145)
[2017-10-31 16:03] LABS: ALKALINE PHOSPHATASE 91 U/L (46-116); ALT/SGPT 36 U/L (14-59); AST/SGOT 20 U/L (15-37); BILIRUBIN TOTAL 0.5 mg/dL (0.20-1.00); TOTAL PROTEIN, SERUM 7.3 g/dL (6.4-8.2)
[2017-10-31 16:58] VITALS: BP 134/60
== END 2017-10-31 16:58 | disposition home or self-care (01) ==
LOC: ED 14:14 → DU 15:51 → ED 15:51
PROVIDERS: Emergency Medicine
DX: J44.1 Chronic obstructive pulmonary disease with (acute) exacerbation (principal); B34.9 Viral infection, unspecified; E11.9 Type 2 diabetes mellitus without complications; I10 Essential (primary) hypertension; M79.7 Fibromyalgia; M19.90 Unspecified osteoarthritis, unspecified site
CPT/HCPCS: J2405; J2930; J7030; J7613; J7644; Q0092